=== PATIENT | female | born 1970 | race Caucasian/White ===

== ENCOUNTER → 2017-09-18 | Outpatient (CLI) | payer OTHER ==
--- NOTE | 2017-09-19 07:03 | US ---
EXAMINATION TYPE: US thyroid st tissue head/neck DATE OF EXAM: 09/18/2017 COMPARISON: NONE CLINICAL HISTORY: E04.1 Nontoxic Single Thyroid Nodule. GLAND SIZE: Right Lobe: 4.9 x 1.3 x 1.6 cm Overall Parenchyma: homogenous Left Lobe: 4.8 x 2.9 x 1.6 cm Overall Parenchyma: homogeneous Isthmus Thickness: 0.4 cm NODULES RIGHT: # of nodules measured on right: 0 LEFT: # of nodules measured on left: 0 ISTHMUS: # of nodules measured in the isthmus: 0 Bilateral neck scanned, no evidence of lymphadenopathy. IMPRESSION: Prominent size of the thyroid gland. No thyroid nodule.
== END | disposition home or self-care (01) ==
LOC: RADUSWWP 15:52
PROVIDERS: ATTEND Family Medicine
DX: E04.1 Nontoxic single thyroid nodule (principal)
CPT/HCPCS: 76536

== ENCOUNTER → 2017-10-16 | Outpatient (CLI) | payer OTHER ==
--- NOTE | 2017-10-16 11:45 | CT ---
EXAMINATION TYPE: CT image guided sinus DATE OF EXAM: 10/16/2017 COMPARISON: NONE HISTORY: Pre OP sinus surgery CT DLP: 825.8 mGycm. Automated Exposure Control for Dose Reduction was Utilized. TECHNIQUE: CT scan of the sinuses is performed without contrast, axial images are obtained, coronal r eformatted images are also reviewed. FINDINGS: Septation within the maxillary sinuses noted bilaterally. Mild changes of ethmoidal chronic sinusitis. Intraorbital contents and intracranial structures are symmetric. Mastoid air cells are well aerated as visualized. Frontal and sphenoid sinuses have a normal appearance. IMPRESSION: 1. Mild chronic ethmoidal sinusitis.
== END | disposition home or self-care (01) ==
LOC: RADCTMAIN 11:01
PROVIDERS: ATTEND Otolaryngology
DX: J32.2 Chronic ethmoidal sinusitis (principal); Z88.1 Allergy status to other antibiotic agents; Z88.0 Allergy status to penicillin
CPT/HCPCS: 70486

== ENCOUNTER → 2017-10-16 | Outpatient (CLI) | payer OTHER | END | disposition home or self-care (01) | LOC: LABWHC1 11:20 | PROVIDERS: ATTEND Otolaryngology | DX: E03.9 Hypothyroidism, unspecified (principal) | CPT/HCPCS: 36415; 84439; 84443; 86376 ==

== ENCOUNTER 2017-11-01 08:29 | Day surgery (SDC) | payer OTHER ==
[2017-10-23 14:16] VITALS: BMI 39.1
[~2017-11-01 08:29] MED LIST: CLINDAMYCIN 600 MG in DEXTROSE 5% IN WATER 50 ML IVPB ONE; DEXAMETHASONE SOD PHOSPHATE 4 MG/ML 1 ML VIAL IV ONE; FAMOTIDINE 20 MG/2 ML VIAL IV ONE; HYDROmorphone 0.5 MG/0.5 ML SYRINGE IVP PRN; MIDAZOLAM 2 MG/2 ML VIAL IV PRN; ONDANSETRON 4 MG/2 ML VIAL IVP ONE
[2017-11-01] MEDS: OXYMETAZOLINE 0.05% NASL SPRAY 1 SPRAY BOTTLE NASAL ONE ×5 (10:11→10:31)
[2017-11-01] MEDS: LACTATED RINGERS 1,000 ML IV SCH ×2 (10:15→10:55)
[2017-11-01] MEDS ORDERED: LIDOCAINE 1% 20 ML VIAL (10MG/ML) FOR IV START INTRADERMA ONE (10:16)
[2017-11-01] MEDS: DEXAMETHASONE SOD PHOSPHATE 10 MG/ML 1 ML VIAL IV ONE ×2 (10:18→10:20)
[2017-11-01] MEDS: ONDANSETRON 4 MG/2 ML VIAL IVP ONE ×2 (10:19→10:20)
[2017-11-01] MEDS ORDERED: SCOPOLAMINE 1.5MG/72HR PATCH TRANSDERM ONE (10:31)
[2017-11-01] MEDS ORDERED: DEXAMETHASONE SOD PHOS (MDV) 100 MG/10 ML VIAL ONE (10:53)
[2017-11-01] MEDS ORDERED: ePHEDrine 50 MG/ML 1 ML AMP ONE (10:53)
[2017-11-01] MEDS ORDERED: PROPOFOL 10 MG/ML 20 ML VIAL IV ONE (10:53)
[2017-11-01] MEDS ORDERED: SUCCINYLCHOLINE CHLORIDE 100 MG/5 ML SYR IV ONE (10:53)
[2017-11-01] MEDS ORDERED: HYDROmorphone (PF) 1 MG/ML ONE (10:53)
[2017-11-01] MEDS ORDERED: MIDAZOLAM 2 MG/2 ML VIAL ONE (10:53)
[2017-11-01] MEDS ORDERED: fentaNYL (PF) 50 MCG/ML 2 ML AMP ONE (10:53)
[2017-11-01] MEDS ORDERED: diphenhydrAMINE 50 MG/ML 1 ML VIAL ONE (10:53)
[2017-11-01] MEDS ORDERED: LIDOCAINE-EPINEPHRINE (PF) 5 ML AMPUL SQ ONE ×3 (11:43→12:09)
[2017-11-01] MEDS ORDERED: BUPIVACAINE (PF) 0.25% 30 ML VIAL SQ ONE ×2 (11:43)
[2017-11-01] MEDS ORDERED: EPINEPHrine 1 MG/ML (MDV) 30 ML VIAL TOPICAL ONE (12:10)
[2017-11-01] MEDS ORDERED: BACITRACIN 500 UNIT/GM OINT 28.4 GM TUBE TOPICAL ONE (12:14)
[2017-11-01] MEDS ORDERED: FLUORESCEIN STRIPS 1 MG STRIP MISCELLANE ONE (12:14)
[2017-11-01] MEDS ORDERED: LACTATED RINGERS 1,000 ML IV ONE (12:30)
--- NOTE | 2017-11-01 13:25 | P.OP ---
Date of Procedure: 11/01/17 Preoperative Diagnosis: Chronic hypertrophic adenotonsillitis Deviated nasal septum Hypertrophy of bilateral inferior nasal turbinates Bilateral middle turbinate lyubov bullosa Sinonasal polyposis Recurring acute sinusitis and chronic ethmoid sinusitis Chronic hypertrophic adenotonsillitis Snoring Obstructive sleep apnea syndrome Postoperative Diagnosis: Same Procedure(s) Performed: Modified Coblation adenotonsillectomy Septoplasty Bilateral submucosal resection of the inferior turbinates with outfracturing compression Bilateral functional endoscopic sinus surgery with intranasal polypectomy, bilateral middle turbinate lyubov bullosa resection, bilateral total ethmoidectomies, bilateral maxillary antrostomy. Anesthesia: GETA Surgeon: Leonard Smith Estimated Blood Loss (ml): 25 Pathology: other (Tonsils and sinonasal) Condition: stable Disposition: PACU Indications for Procedure: This patient presented to the office with complaints of a large tonsils recurring strep throat and sinus issues. She has had recurring sore throats of 5 history of tonsillitis per year for many years. She is a chronic mouth breather has total nasal obstruction and was found to have severe obstructive sleep apnea syndrome. She is a mouth breather is unable to breathe through her nose has constant drainage facial pain pressure and headaches. She been on multiple antibiotics nasal sprays decongestants with no improvement long-term. She is a constant discolored sinus drainage but also gets recurring acute sinusitis about 5-6 times per year. Again, she is tried on medical therapies including antibiotics nasal sprays etc. with no improvement. CAT scan evaluation shows a deviated nasal septum with large obstructive inferior turbinates and middle turbinate lyubov bullosa and evidence of chronic ethmoiditis. Patient also has recurrent maxillary sinusitis. After long discussion we decided to proceed forward with adenotonsillectomy and sinus surgery with polypectomy. All risks, benefits, and alternative therapies were discussed. Risks of bleeding, infection, penetration of orbit and brain, change or loss of smell, etc. etc. were explained. Consent was obtained and all questions were answered. Operative Findings: Patient was found have massively enlarged tonsils and adenoids. The tonsils were touching in the midline and they're extremely cryptic exudative. Patient also had bilateral nasal polyps mostly coming off the middle turbinates with bilateral maxillary sinus disease and bilateral middle turbinate lyubov bullosa chronic Ethmoiditis. The patient also had large obstructive inferior turbinates along with the her deviated nasal septum. Description of Procedure: This patient was taken to the operative room and placed in the supine position. A general inhalation anesthetic was administered to the patient by the department of anesthesia with a functioning IV line in place. The patient was monitored throughout the entire case by the department of anesthesia. The eyes were taped shut for protection. The patient was placed in a slight reverse Trendelenburg position. The patient had previously utilize Afrin nasal spray preoperatively. The nose was evaluated and the septum lateral nasal wall and inferior turbinates were injected with lidocaine 1% with epinephrine 1 100,000 bilaterally. Approximately 10 minutes were allowed wait for full vasoconstrictive effects to take place. At this point a caudal incision was made over the caudal portion of the left septum down to the mucoperichondrium. A mucoperichondrial flap was elevated on the left side and dissection was carried with use of tunnels posteriorly. We then made a crossover incision through the cartilage to the contralateral side and for the mucoperichondrial flap development was performed to the extent of visualization on the contralateral side. After the cartilage was freed with use of several crosshatching incisions and removal of some redundant strips of septal cartilage, the septum was straightened and placed back in the midline. The septum was sutured fixated to the ovarian groove. Excellent straightening occurred and the septum was visibly straight. Incision was closed with a 40 rapid Vicryl. We utilized a running nonlocking fashion for closure of the incision. A quilting stitch was used to reapproximate the septal flaps with use of a 40 rapid Vicryl. We then entered the nose with a 0 and 30 Chen howard endoscope. Previous to this we did inject the lateral nasal wall and middle turbinate and uncinate process with lidocaine 1% with epinephrine 1 100,000. Approximately 10 minutes were allowed wait for full vasoconstrictive effects to take place. Intranasal polyps were noted. They were noted bilaterally. The intranasal polyps were removed with use of a microdebrider. With use of a microdebrider and a pediatric backbiter, we took down the uncinate process bilaterally. We then opened the maxillary sinuses bilaterally. We utilized a microdebrider for this and entered the maxillary sinuses and removed diseased tissue and polypoid tissue. This was done bilaterally. After the maxillary sinuses were opened and the diseased tissue and polyps were removed we entered the ethmoid bulla and with use of a microdebrider and up-biting Carla, we remove the anterior septations and remove diseased tissue from the anterior ethmoids with direct visualization. We then followed the fovea frontalis through the basal lamella and into the posterior ethmoid air cells and did a total ethmoidectomy with removal of polypoid material. To summarize maxillary and ethmoid sinuses were open these sinuses were explored and we remove diseased tissue and polyps from the nose and sinuses. Polyps were removed from the nose. Ethmoid sinuses were opened totally. Nasal pore was inserted and minimal bleeding was encountered. We reinspected the skull base there is no signs of any orbital penetration or signs of any intracranial penetration. The sugical site was reinspected after the nasal pore was placed and no bleeding was seen. Attention was then paid to the inferior turbinates. The bilateral inferior turbinates were hypertrophic and obstructive. We entered the anterior portion of the inferior turbinates with use of a microdebrider. We remove bone and submucosal elements with use of a microdebrider bilaterally. The inferior turbinates underwent a submucosal resection with removal of submucosal tissue and bone. We obtained a much better and normal in size for breathing. The inferior turbinates were then outfractured and compressed with a WeGush nasal elevator. Excellent airway was obtained and was symmetric bilaterally. No bleeding was encountered. Intranasal splints were inserted and fixated at the end of the case. We utilized Sanchez nasal splints. A McIvor mouth gag was placed into the patient s mouth with care to avoid any trauma to the lips, teeth, gums or tongue. Mouth was opened and tongue was depressed. The tonsils were grasped with an Allis forceps and brought medially bilaterally. A subcapsular dissection was performed utilizing an Evac-70 handpiece with an Arthrotec setting of 7. The tonsils were removed without incident bilaterally and the tonsillar fossae were inspected and bleeding was nonexistent and stopped spontaneously with Coblation. A Marcaine and lidocaine mixture was injected into the peritonsillar area for anesthesia postoperatively. After the tonsillar fossae were reinspected and no bleeding was seen attention was then paid to the nasopharynx where a red rubber catheter was placed into the nose and out the mouth and used to retract the soft palate. With use of indirect mirror examination and the Coblation hand wand, the adenoid tissue was removed in that fashion again utilizing an Evac-70 handpiece with Arthrotec setting of 7. The adenoid tissues were removed and fulgurated. The patient tolerated this procedure well. The nasopharynx shows no signs of any bleeding. McIvor mouth gag and the red rubber catheter were removed. The stomach was suctioned and the patient was taken to postanesthesia recovery in excellent condition having tolerated this procedure well. The patient will follow up in the office in one week as scheduled. There will be removed and the patient returns to the office.
[2017-11-01 13:26] VITALS: TEMP 97.3
--- NOTE | 2017-11-01 13:32 | P.EN ---
Just a note that the sinus surgery was performed with the GE image guided instratrack system We registered anatomic points and guided the surgery this this device.
[2017-11-01] MEDS: MORPHINE SULFATE 4 MG/ML SYRINGE IVP ONE ×2 (14:22→14:34)
[2017-11-01 14:58] VITALS: RESP 16
[2017-11-01 15:56] VITALS: BP 153/90; PULSE 63
== END 2017-11-01 16:04 | disposition home or self-care (01) ==
LOC: OR 08:29
PROVIDERS: ATTEND Otolaryngology
DX: J35.03 Chronic tonsillitis and adenoiditis (principal); J34.2 Deviated nasal septum; J32.2 Chronic ethmoidal sinusitis; J01.90 Acute sinusitis, unspecified; J32.0 Chronic maxillary sinusitis; J34.3 Hypertrophy of nasal turbinates; K21.9 Gastro-esophageal reflux disease without esophagitis; G47.33 Obstructive sleep apnea (adult) (pediatric); I10 Essential (primary) hypertension; Z79.899 Other long term (current) drug therapy; Z88.0 Allergy status to penicillin; Z88.2 Allergy status to sulfonamides; Z88.8 Allergy status to other drugs, medicaments and biological substances; Z91.018 Allergy to other foods
CPT/HCPCS: 88304; 88305; 88300; 30520; 30140; 31267; 31255; J0171; J2250; J2270; J1200; J1100 ×2; J2405; J3010; J1170; J0330; J2704

== ENCOUNTER → 2021-02-07 | Outpatient (CLI) | payer BC ==
--- NOTE | 2021-02-07 10:43 | CT ---
EXAMINATION TYPE: CT brain wo con DATE OF EXAM: 02/07/2021 HISTORY: vertigo CT DLP: 1088 mGycm. Automated Exposure Control for Dose Reduction was Utilized. TECHNIQUE: CT scan of the head is performed without contrast. COMPARISON: CT sinuses October 16, 2017. FINDINGS: There is large by by 5.5 x 4.9 cm anterior left frontal hyperdense round well-defined mass axial image 34 measuring 5.4 cm craniocaudal dimension coronal image 23 with local mass effect and mi dline shift up to nearly 12 mm. Adjacent vasogenic edema. Finding new from 2018 CT. Suprasellar ciste rn maintained. No gross hydrocephalus. Visualized paranasal sinuses grossly clear. Hyperostosis front twyla. Globes are intact. IMPRESSION: There is new 5.5 cm hyperdense left frontal mass with local mass effect and midline shift , favor meningioma given hyperdense appearance and suspected extra-axial location. Advise contrast en hanced MRI follow-up and neurosurgical referral.
[2021-02-07 11:47] LABS: Basophils # (A) 0.1 k/uL (0-0.2); Basophils % (A) 1 %; Eosinophils # (A) 0.1 k/uL (0-0.7); Eosinophils % (A) 1 %; HCT 38.3 % (34.0-46.0); HGB 12.9 gm/dL (11.4-16.0); Lymphocytes # (A) 2.1 k/uL (1.0-4.8); Lymphocytes % (A) 21 %; MCH 30.4 pg (25.0-35.0); MCHC 33.7 g/dL (31.0-37.0); MCV 90.2 fL (80.0-100.0); Monocytes # (A) 0.4 k/uL (0-1.0); Monocytes % (A) 4 %; Neutrophils # (A) 7.3 k/uL (1.3-7.7); Neutrophils % (A) 73 %; Platelet Count 239 k/uL (150-450); RBC 4.25 m/uL (3.80-5.40)
[2021-02-07 11:53] LABS: Albumin 4.5 g/dL (3.5-5.0); Calcium 9.8 mg/dL (8.4-10.2); Potassium 4.1 mmol/L (3.5-5.1); Total Protein 8.1 g/dL (6.3-8.2)
[2021-02-07 12:08] LABS: T4, Free (Free Thyroxine) 1.21 ng/dL (0.78-2.19)
[2021-02-07 12:11] LABS: Creatine Kinase MB 0.3 ng/mL (0.0-2.4); Troponin I <0.012 ng/mL (0.000-0.034)
[2021-02-07 21:12] LABS: Folate, Serum 9.5 ng/mL
== END | disposition home or self-care (01) ==
LOC: RADCTMAIN 10:03
PROVIDERS: ATTEND Family Medicine
DX: G93.89 Other specified disorders of brain (principal)
CPT/HCPCS: 70450; 80053; 82553; 82607; 82746; 83615; 84439; 84443; 84484; 85025